=== PATIENT | female | born 1995 | race Caucasian/White ===

== ENCOUNTER 2024-04-03 18:00 | Emergency (ER) | payer MEDICAID ==
[~2024-04-03] VITALS: Ht 147.3 cm; Wt 61.2 kg
[2024-04-03 18:09] VITALS: PULSE 67; RESP 18; O2SAT 96
[2024-04-03] MEDS ORDERED: CEPH250S PO (18:33)
[2024-04-03] MEDS ORDERED: IBUP100O22 PO (18:33)
[2024-04-03] MEDS ORDERED: CEPHALEXIN 125 MG/5 ML, 100 ML BTL ONE (18:39)
[2024-04-03 18:46] VITALS: PULSE 92; RESP 19; TEMP 98.2; O2SAT 100
[2024-04-03] MEDS: CEPHALEXIN 125 MG/5 ML, 100 ML BTL PO ONE (18:50)
== END 2024-04-03 18:46 | disposition home or self-care (01) ==
LOC: SED 18:00
DX: N61.0 Mastitis without abscess (principal)
CPT/HCPCS: 99283